=== PATIENT | female | born 1980 | race Caucasian/White ===

== ENCOUNTER 2019-11-10 20:58 | Emergency (ER) | payer OTHER ==
[~2019-11-10 20:58] MED LIST: Iopamidol 370 76% 100 ML VIAL ONE
[2019-11-10 21:27] LABS: Bilirubin Small (Negative); Blood, Urine Trace (Negative); Clarity Slightly Cloudy (Clear); Glucose, Urine (Dipstick) Negative (Negative); Leukocyte Negative (Negative); Nitrite Negative (Negative); Protein, Urine (Dipstick) 100 mg/dL (Neg-Trace); Urobilinogen 0.2 mg/dL (Less than 2)
[2019-11-10] MEDS ORDERED: Morphine 4 MG/ML VIAL ONE (21:31)
[2019-11-10] MEDS ORDERED: Ondansetron PF 4 MG/2 ML Vial ONE (21:31)
[2019-11-10 21:33] LABS: Bacteria/HPF 2+ HPF (None Seen); Mucous/LPF 2+ LPF (<2+); Squamous Epithelial 0-3 HPF (0-3); Transitional Epithelial 0-3 HPF (None Seen)
[2019-11-10 21:50] LABS: #Monocytes 0.4 thou/uL (0.11-0.59); #Neutrophils 5.3 thou/uL (1.40-6.50); %Basophils 0.6 % (0.0-1.0); %Eosinophils 0.1 % (0.0-10.0); %Lymphocytes 14.4 % (21.0-51.0); %Monocytes 6.1 % (0.0-10.0); %Neutrophils 78.8 % (42.0-75.0); Hemoglobin 14.5 g/dL (12.0-16.0); Mean Corpuscular HGB CONC 32.2 g/dL (32.0-36.0); Mean Corpuscular Hemoglobin 28.4 pg (27.0-31.0); Mean Platelet Volume 6.6 fL (7.4-10.4); Platelet Count 211 thou/uL (130-400); RBC Distribution Width 12.3 % (11.5-14.5); White Blood Cell (WBC) Count 6.7 thou/uL (4.8-10.8)
[2019-11-10 21:56] LABS: Pregnancy Test - Urine (BHCG) Negative (Negative); Pregu Control Background? CLEAR/WHITE (CLR/WHITE); Pregu Control Bar Appear? YES (CONTROL BAR); Specific Gravity 1.034 (1.002-1.036)
[2019-11-10 22:07] LABS: ALT (SGPT) 14 U/L (8-55); AST (SGOT) 12 U/L (5-34); Alkaline Phosphatase 71 U/L (40-110); Anion Gap 14 mmol/L (10-20); BUN (Urea Nitrogen) 10 mg/dL (7.0-18.7); Bilirubin, Total 0.5 mg/dL (0.2-1.2); Calc. Creatinine Clearance 0 mL/min (70-130); Calcium 9.1 mg/dL (7.8-10.44); Carbon Dioxide 24 mmol/L (22-29); Chloride 105 mmol/L (98-107); Estimated GFR-MDRD 58; Globulin 3.1 g/dL (2.4-3.5); Glucose 135 mg/dL (70-105); Lipase 49 U/L (8-78); Protein, Total 7.1 g/dL (6.0-8.3); Sodium 140 mmol/L (136-145)
[2019-11-10] MEDS ORDERED: Potassium Chloride 20 MEQ TAB ONE (22:38)
[2019-11-10] MEDS ORDERED: Ciprofloxacin 500 MG TAB ONE (22:38)
[2019-11-10] MEDS ORDERED: metroNIDAZOLE 500 MG/100 ML BAG ONE (22:38)
[2019-11-10] MEDS ORDERED: metroNIDAZOLE 250 MG TAB ONE (22:40)
[2019-11-10] MEDS ORDERED: Fentanyl 100 MCG/2 ML VIAL ONE (22:40)
[2019-11-11] MEDS ORDERED: Sucralfate 1 GM/10 ML UDCUP PO SCH (01:30)
--- NOTE | 2019-11-11 07:09 | CT ---
CT ABDOMEN AND PELVIS WITH CONTRAST: Date: 11/10/2019 The major finding on this study is multiple fluid-filled loops of thickened terminal ileum. There is a small to medium amount of free fluid in the vicinity and in the pelvis. I cannot definitely identif y the appendix. There is abundant fluid in the cecum and right colon, but beyond this, there was no s ign of colonic thickening or inflammatory change around the colon itself. See differential comments b elow. The lung bases are clear. The liver, spleen, pancreas, gallbladder, adrenal glands, kidneys, and abdo kayleen aorta all appear normal. No free air seen in the abdomen or pelvic region. CT of the pelvis was remarkable for the findings listed above. There were no additional acute changes . What I presume to be arms of some sort of IUD device is seen in the proximal portion of each fallop emmanuel tube, but I do not see anything in the endometrial cavity itself. IMPRESSION: Marked thickening of the terminal ileum. The most likely diagnosis is terminal ileitis with the most common etiologies being Crohn's disease or infectious enteritis. Other entities such as lymphoma, vas culidities, etc., would be much less likely. Findings discussed with Dr. Treviño at 1022 hours on 11/10/2019. CODE CR. POS: HOME
== END 2019-11-11 01:18 | disposition short-term general hospital (02) ==
LOC: BURERS 20:58
DX: K50.00 Crohn's disease of small intestine without complications (principal); E87.6 Hypokalemia; Z20.828 Contact with and (suspected) exposure to other viral communicable diseases; Z79.899 Other long term (current) drug therapy
CPT/HCPCS: 74177; 80053; 81003; 81015; 81025; 83690; 83735; 85025; 87045; 87046; 87086; 87324; 87427; 87449; 96361; 96374; 96375; J2270; J2405; J3010; Q9967

== ENCOUNTER 2020-09-11 16:27 | Emergency (ER) | payer OTHER, SELFPAY ==
[2020-09-11 17:21] LABS: #Basophils 0.1 thou/uL (0.0-0.2); #Lymphocytes 1.6 thou/uL (1.20-3.40); #Monocytes 0.4 thou/uL (0.11-0.59); #Neutrophils 8.4 thou/uL (1.40-6.50); %Basophils 0.7 % (0.0-1.0); %Eosinophils 0.2 % (0.0-10.0); %Lymphocytes 15.5 % (21.0-51.0); %Monocytes 3.6 % (0.0-10.0); Hemoglobin 15.8 g/dL (12.0-16.0); Mean Corpuscular HGB CONC 33.8 g/dL (32.0-36.0); Mean Corpuscular Hemoglobin 29.3 pg (27.0-31.0); Mean Corpuscular Volume 86.9 fL (78.0-98.0); Mean Platelet Volume 6.3 fL (7.4-10.4); Platelet Count 317 thou/uL (130-400); RBC Distribution Width 12.3 % (11.5-14.5); White Blood Cell (WBC) Count 10.5 thou/uL (4.8-10.8)
[2020-09-11 17:42] LABS: ALT (SGPT) 34 U/L (8-55); AST (SGOT) 23 U/L (5-34); Albumin 4.7 g/dL (3.5-5.0); Alkaline Phosphatase 87 U/L (40-110); Anion Gap 17 mmol/L (10-20); BUN (Urea Nitrogen) 12 mg/dL (7.0-18.7); Bilirubin, Total 0.5 mg/dL (0.2-1.2); CK (CPK) 204 U/L (29-168); Calc. Creatinine Clearance 0 mL/min (70-130); Calcium 9.7 mg/dL (7.8-10.44); Carbon Dioxide 28 mmol/L (22-29); Chloride 94 mmol/L (98-107); Glucose 129 mg/dL (70-105); Protein, Total 8.7 g/dL (6.0-8.3); Sodium 136 mmol/L (136-145)
[2020-09-11 17:50] LABS: Potassium 2.5 mmol/L (3.5-5.1)
[2020-09-11] MEDS ORDERED: Potassium Chloride 20 MEQ TAB ONE (18:04)
== END 2020-09-11 18:20 | disposition home or self-care (01) ==
LOC: BURERS 16:27
DX: R55 Syncope and collapse (principal); E87.6 Hypokalemia; R51.9 Headache, unspecified; Z79.899 Other long term (current) drug therapy
CPT/HCPCS: 36415; 70450; 80053; 82550; 84484; 85025; 93005